=== PATIENT | male | born 1960 | race Caucasian/White ===

== ENCOUNTER 2018-09-05 11:17 | Observation (INO) | payer BC ==
[2018-09-05 12:28] LABS: BASO # 0.1 x10^3/uL (0.0-0.2); BASO % 1 % (0-3); EOS # 0.3 x10^3/uL (0.0-0.7); EOS % 3 % (0-3); HEMATOCRIT 43.6 % (39.0-53.0); HEMOGLOBIN 15.3 g/dL (13.0-17.5); LYMPH # 1.4 x10^3/uL (1.0-4.8); LYMPH % 17 % (24-48); MEAN CORPUSCULAR HEMOGLOBIN 32 pg (25-35); MEAN CORPUSCULAR HGB CONC 35 g/dL (31-37); MEAN CORPUSCULAR VOLUME 90 fL (79-100); MONO # 0.8 x10^3/uL (0.0-1.1); MONO % 10 % (0-9); NEUT # 5.5 x10^3uL (1.8-7.7); NEUT % 68 % (31-73); PLATELET COUNT 241 x10^3/uL (140-400); RED BLOOD COUNT 4.84 x10^6/uL (4.30-5.70); RED CELL DISTRIBUTION WIDTH 13.4 % (11.5-14.5); WHITE BLOOD COUNT 8.1 x10^3/uL (4.0-11.0)
[2018-09-05 12:29] VITALS: BP 154/82
[2018-09-05 12:43] LABS: ALBUMIN 3.8 g/dL (3.4-5.0); CALCIUM 8.1 mg/dL (8.5-10.1); CREATININE 0.9 mg/dL (0.7-1.3); GFR 86.1; POTASSIUM 3.5 mmol/L (3.5-5.1); TOTAL BILIRUBIN 0.3 mg/dL (0.2-1.0); TOTAL PROTEIN 7.5 g/dL (6.4-8.2)
[2018-09-05] MEDS ORDERED: ASPIRIN ENTERIC COATED 325 MG TABLET.DR. PO ONE (14:00)
--- NOTE | 2018-09-05 14:02 | RAD ---
Chest, 2 views, 09/05/2018: HISTORY: Chest pain The heart size and pulmonary vascularity are normal. There is an opacity projected over the left upper chest along the anterior end of the left first rib. No right lung infiltrate is seen. There is no evidence of pleural fluid. Mild scattered spurs are present in the spine. IMPRESSION: Left upper chest opacity suggesting focal infiltrate or a mass, although a summation of rib and vascular shadows could be giving this appearance. CT scanning is suggested for further evaluation. Electronically signed by: Mihir Morgan MD (09/05/2018 1:59 PM) [facility]
--- NOTE | 2018-09-05 14:08 | PDOC2 ---
HAMLET OLMSTEAD HANDLE MAKER 09/05/18 1408: CONSULT Date of Admission DATE: 09/05/18 TIME: 13:52 Reason for Consult: cp History of Present Illness Mr Draper is a 58 year old male who has previously followed with Dr eLo for cardiac care. He has a history of atrial fibrillation which has been controlled for quite some time and remains in sinus rhythm. He reports normal echo and stress testing in 2016. He has not seen a rn perinatal since 2016 as he lost insurance for that time. He was sent to the hospital as a direct admit from his PCP office today for complaints of chest pain. He reports intermittent midsternal pressure all Saturday and into Saturday am. He denies any relationship to exertion. He denies increasing or relieving factors. he denies radiation or associated symptoms. He reports he has had no chest discomfort since Saturday morning. He denies any symptoms of fatigue, shortness of breath, palpitaitons, lightheadedness, presyncope or syncope,. He denies change or limitations in functional status. he "want to go home" and reports he "feels fine" Cardiovascular: AFIB, HTN, hyperipidemia CENTRAL NERVOUS SYSTEM: TIA Past Surgical History unremarkable Family History non contributory Social History non smoker, no significant etoh, no illlict drugs Allergies: Coded Allergies: latex (Verified Allergy, Unknown, 09/05/18) VITALS Vital Signs Date Time Temp Pulse Resp B/P (MAP) Pulse Ox O2 Delivery O2 Flow Rate FiO2 09/05/18 12:29 98.5 72 19 154/82 (106) 97 Labs Laboratory Tests Test 09/05/18 12:18 White Blood Count 8.1 x10^3/uL (4.0-11.0) Red Blood Count 4.84 x10^6/uL (4.30-5.70) Hemoglobin 15.3 g/dL (13.0-17.5) Hematocrit 43.6 % (39.0-53.0) Mean Corpuscular Volume 90 fL (79-100) Mean Corpuscular Hemoglobin 32 pg (25-35) Mean Corpuscular Hemoglobin Concent 35 g/dL (31-37) Red Cell Distribution Width 13.4 % (11.5-14.5) Platelet Count 241 x10^3/uL (140-400) Neutrophils (%) (Auto) 68 % (31-73) Lymphocytes (%) (Auto) 17 % (24-48) Monocytes (%) (Auto) 10 % (0-9) Eosinophils (%) (Auto) 3 % (0-3) Basophils (%) (Auto) 1 % (0-3) Neutrophils # (Auto) 5.5 x10^3uL (1.8-7.7) Lymphocytes # (Auto) 1.4 x10^3/uL (1.0-4.8) Monocytes # (Auto) 0.8 x10^3/uL (0.0-1.1) Eosinophils # (Auto) 0.3 x10^3/uL (0.0-0.7) Basophils # (Auto) 0.1 x10^3/uL (0.0-0.2) D-Dimer ([place]da) 0.23 mg/L (0.00-0.50) Sodium Level 143 mmol/L (136-145) Potassium Level 3.5 mmol/L (3.5-5.1) Chloride Level 105 mmol/L (98-107) Carbon Dioxide Level 29 mmol/L (21-32) Anion Gap 9 (6-14) Blood Urea Nitrogen 14 mg/dL (8-26) Creatinine 0.9 mg/dL (0.7-1.3) Estimated GFR (Cockcroft-Gault) 86.1 BUN/Creatinine Ratio 16 (6-20) Glucose Level 86 mg/dL (70-99) Calcium Level 8.1 mg/dL (8.5-10.1) Total Bilirubin 0.3 mg/dL (0.2-1.0) Aspartate Amino Transf (AST/SGOT) 13 U/L (15-37) Alanine Aminotransferase (ALT/SGPT) 20 U/L (16-63) Alkaline Phosphatase 120 U/L (46-116) Creatine Kinase 71 U/L (39-308) Troponin I Quantitative < 0.017 ng/mL (0-0.055) Total Protein 7.5 g/dL (6.4-8.2) Albumin 3.8 g/dL (3.4-5.0) Albumin/Globulin Ratio 1.0 (1.0-1.7) Assessment/Plan 1. chest pain, non exertional - pain free since saturday. Prior history of negative stress in about 2015. Suggest check echo for LV function and wall motion, repeat Miladys and if no acute abn, could have MPI on outpatient basis. 2. atrial fib - currently in sinus, on propafenone. 3. hx TIA 4. Hypertension 5. Hyperlipidemia Resume home meds, check echo, repeat CE if no acute abn, ok for home with outpatient MPI. BRUCE FRYE MD 09/05/182033: CONSULT Assessment/Plan Patient seen and examined. Agree with ENROLLMENT CLERK's assessment and plan. 2D echo showed normal EF without any WMA Maintaining sinus rhythm with propafenone Plan outpatient stress test with primary rn perinatal Thank you for your consultation HAMLET OLMSTEAD APRN Sep 05, 2018 14:08 BRUCE FRYE MD Sep 05, 2018 20:34
--- NOTE | 2018-09-05 15:50 | CARD ---
MR#: [id number] Date of Study: 09/05/2018 Ordering Physician: RONEN MANJARREZ, Referring Physician: RONEN MANJARREZ, Tech: Amanda Caldwell GEOVANNA APPROVED REPORT EXAM: Two-dimensional and M-mode echocardiogram with Doppler and color Doppler. Other Information Quality : AverageHR: 58bpm Rhythm : Bradycardia INDICATION Chest Pain 2D DIMENSIONS Left Atrium(2D)3.0 (1.6-4.0cm)IVSd1.1 (0.7-1.1cm) Aortic Root(2D)3.1 (2.0-3.7cm)LVDd4.0 (3.9-5.9cm) LVOT Diameter1.9 (1.8-2.4cm)PWd1.1 (0.7-1.1cm) LVDs2.9 (2.5-4.0cm)FS (%) 27.8 % SV37.6 ml Aortic Valve AoV Peak Manuel.138.0cm/sAoV VTI25.6cm AO Peak GR.7.6mmHgLVOT Peak Manuel.94.2cm/s LVOT VTI 23.87cmAO Mean GR.3mmHg CHESTER (VMAX)1.10lz3NQC (VTI)2.61cm2 Mitral Valve MV E Fslbrxbo366.9cm/sMV DECEL [id number] MV A Bitsdxtt164.9cm/sE/A Ratio1.0 MV A [id number] Pulmonary Valve PV Peak Tqlhotft574.3cm/sPV Peak Grad.5mmHg Tricuspid Valve TR P. [id number]/sRAP [id number] TR Peak Gr.79erQtHKJO08flRi LEFT VENTRICLE The left ventricle is normal size. There is borderline concentric left ventricular hypertrophy. The l eft ventricular systolic function is normal and the ejection fraction is within normal range. The Eje ction Fraction is 55-60%. There is normal LV segmental wall motion. Transmitral Doppler flow pattern is Grade II-pseudonormal filling dynamics. RIGHT VENTRICLE The right ventricle is normal size. There is normal right ventricular wall thickness. The right ventr icular systolic function is normal. ATRIA The left atrium size is normal. The right atrium size is normal. The interatrial septum is intact wit h no evidence for an atrial septal defect or patent foramen ovale as noted on 2-D or Doppler imaging. AORTIC VALVE The aortic valve is thickened but opens well. The aortic valve is trileaflet. Doppler and Color Flow revealed no significant aortic regurgitation. There is no significant aortic valvular stenosis. There is no aortic valvular vegetation. MITRAL VALVE The mitral valve is normal in structure and function. There is no evidence of mitral valve prolapse. There is no mitral valve stenosis. Doppler and Color-flow revealed trace to mild mitral regurgitation . TRICUSPID VALVE The tricuspid valve is normal in structure and function. Doppler and Color Flow revealed mild tricusp id regurgitation. The PA pressure was estimated at 32 mmHg. There is no tricuspid valve prolapse or v egetation. There is no tricuspid valve stenosis. PULMONIC VALVE The pulmonic valve is not well visualized. GREAT VESSELS The aortic root is normal in size. The ascending aorta is normal in size. The IVC is normal in size a nd collapses >50% with inspiration. PERICARDIAL EFFUSION There is no evidence of significant pericardial effusion. Critical Notification Critical Value: No <Conclusion> The left ventricle is normal size. The left ventricular systolic function is normal and the ejection fraction is within normal range. The Ejection Fraction is 55-60%. There is borderline concentric left ventricular hypertrophy. There is no significant aortic valvular stenosis. Doppler and Color Flow revealed no significant aortic regurgitation. Doppler and Color-flow revealed trace to mild mitral regurgitation. Doppler and Color Flow revealed mild tricuspid regurgitation. The PA pressure was estimated at 32 mmHg. Signed by : Severo Majano MD Electronically Approved : 09/05/2018 15:50:19
--- NOTE | 2018-09-06 18:19 | EKG ---
[address] [address] Test Date: 2018-09-05 Test Time: 13:24:42 Pat Name: RENATO MCLEOD Department: Room: [place] [address] Gender: M Vest Backer: TEO : 1960 Requested By: RONEN MANJARREZ Order Number: [id number] Reading MD: Vj Roberts MD Measurements Intervals [place] Rate: 61 P: 33 NM: 144 QRS: 41 QRSD: 74 T: 28 QT: 386 QTc: 394 Interpretive Statements SINUS RHYTHM Electronically Signed On 09-09-2018 14:57:27 CDT by Vj Roberts MD
== END 2018-09-05 16:17 | disposition home or self-care (01) ==
LOC: ICU 11:48 → INTOOBSV 11:48 → ICU 13:03
PROVIDERS: ADMIT Family Medicine; ATTEND Family Medicine
DX: R07.2 Precordial pain (principal); I48.91 Unspecified atrial fibrillation; I10 Essential (primary) hypertension; E78.5 Hyperlipidemia, unspecified; Z86.73 Personal history of transient ischemic attack (TIA), and cerebral infarction without residual deficits; Z91.040 Latex allergy status
CPT/HCPCS: 36415; 71046; 80053; 80061; 82550; 84484; 85025; 85379; 87641; 93005; 93306; G0378; G0379